=== PATIENT | female | born 1980 | race Hispanic/Latino ===

== ENCOUNTER 2018-08-24 08:09 | Inpatient (IN) | payer SELFPAY ==
--- NOTE | 2018-08-24 08:44 | RAD ---
EXAM: Portable chest PROVIDED CLINICAL HISTORY: Fever COMPARISON: None FINDINGS: Cardiac and mediastinal silhouette is within normal limits. No focal consolidation, pleural fluid or pneumothorax evident. IMPRESSION: No evidence for an acute cardiopulmonary process.
[2018-08-24] MEDS ORDERED: cefTRIAXone\\ROCEPHIN 2 GM VIAL ONE (08:46)
[2018-08-24 08:53] LABS: BHCG - Serum Negative (NEGATIVE); Pregs Control Background? CLEAR/WHITE (CLR/WHITE); Pregs Control Bar Appear? YES (CONTROL BAR)
[2018-08-24 09:05] LABS: ALT (SGPT) 37 U/L (8-55); AST (SGOT) 25 U/L (5-34); Albumin 4.1 g/dL (3.5-5.0); Alkaline Phosphatase 93 U/L (40-150); Anion Gap 13 mmol/L (10-20); BUN (Urea Nitrogen) 10 mg/dL (7.0-18.7); Bilirubin, Total 1.1 mg/dL (0.2-1.2); Calc. Creatinine Clearance 0 mL/min (70-130); Calcium 8.6 mg/dL (7.8-10.44); Carbon Dioxide 21 mmol/L (22-29); Chloride 102 mmol/L (98-107); Estimated GFR-MDRD 75; Globulin 3.7 g/dL (2.4-3.5); Glucose 177 mg/dL (70-105); Potassium 3.5 mmol/L (3.5-5.1); Protein, Total 7.8 g/dL (6.0-8.3); Sodium 132 mmol/L (136-145)
[2018-08-24] MEDS ORDERED: Acetaminophen 500 MG TAB ONE (09:07)
[2018-08-24 09:21] LABS: Band 24 % (5-11); Lymphocytes 5 % (21-51); MDiff Complete? YES; Mean Corpuscular HGB CONC 33.6 g/dL (32.0-36.0); Mean Corpuscular Hemoglobin 31.8 pg (27.0-31.0); Mean Corpuscular Volume 94.6 fL (78.0-98.0); Mean Platelet Volume 8.2 fL (7.4-10.4); Monocytes 1 % (0-10); Neutrophil 70 % (42-75); Platelet Count 224 thou/uL (130-400); RBC Distribution Width 11.7 % (11.5-14.5); Red Blood Cell (RBC) Count 4.09 mill/uL (4.20-5.40)
[2018-08-24 09:50] LABS: Bilirubin Negative (Negative); Blood, Urine Large (Negative); Clarity CLOUDY (Clear); Glucose, Urine (Dipstick) Negative (Negative); Leukocyte Moderate (Negative); Nitrite Positive (Negative); Protein, Urine (Dipstick) Trace mg/dL (Neg-Trace); Specific Gravity, Urine 1.013 (1.002-1.036)
[2018-08-24 09:53] LABS: Bacteria/HPF 1+ HPF (None Seen); Hyaline Casts/LPF 0-3 HYALINE CAST LPF (0-3 Hyaline); Pathc Cast-AUWi Flag 0.27 (0-2.49); RBC/HPF 21-50 HPF (0-3); Squamous Epithelial 0-3 HPF (0-3)
[2018-08-24] MEDS ORDERED: Ciprofloxacin 500 MG TAB ONE (10:12)
[2018-08-24] MEDS ORDERED: Ondansetron ODT 4 MG TAB ONE (10:12)
--- NOTE | 2018-08-24 10:57 | PDOC.FPRHP ---
- History of Present Illness Chief Complaint: fever, urinary frequency History of Present Illness: 37 yo F with no PMH presents to ED with fever, urinary frequency that started yesterday. Reports body pain, fever, chills, frequency, rapid heart beat that has now improved. Denies dysuria. Reports nausea and decreased PO intake, no vomiting. Pain worse at LLQ and radiates to back. Never had nephrolithiasis. Has has simple cystitis in past that she treats with OTC azo. Last took 15 days ago which resolved symptoms. ED Course: 1L, tylenol, zofran, rocpehin, cipro - Allergies/Adverse Reactions Allergies Allergy/AdvReac Type Severity Reaction Status Date / Time No Known Allergies Allergy Verified 04/06/15 16:41 - Home Medications Medication Instructions Recorded Confirmed Type No Known 08/24/18 08/24/18 History - History PMHx: depression - off meds for 4 years PSHx: x2, cholecystectomy FHx: Denies Social: Prior tobacco use. Quit 6 months ago. Smoked 1-2 cigs/day fro >10 yrs. Social alcohol use. No drug use. - Review of Systems General: reports: fever/chills, weight/appetite/sleep changes, fatigue ENT: denies: nasal congestion Respiratory: denies: cough, shortness of breath Cardiovascular: reports: palpitation. denies: chest pain Gastrointestinal: reports: nausea, abdominal pain. denies: vomiting Genitourinary: reports: other (frequency). denies: incontinence, dysuria Skin: denies: rashes, lesions Musculoskeletal: reports: pain. denies: swelling Neurological: denies: numbness, syncope Psychological: denies: anxiety, depression - Vital signs BP: 109/63 HR: 111 RR: 20 Tmax: 102.7 Pox: 98% on RA Wt: 61 kg - Physical Exam HEENT: normocephalic and atraumatic, PERRLA, EOMI, conjunctiva clear, MMM, oropharynx clear Neck: supple Heart: normal S1/S2, no murmurs/rubs/gallops (tachycardia), pulses present, no edema Lungs: CTAB, no respiratory distress, no wheezing Abdomen: soft, bowel sounds present, other (suprapubic tenderness) Musculoskeletal: normal structure, normal tone -Musculoskeletal: mild CVA tenderness on L Neurological: no focal deficit Skin: no rash/lesions Heme/Lymphatic: no LAD Psychiatric: normal mood and affect FMR H&P: Results - Labs Result Diagrams: 08/24/18 08:21 08/24/18 08:21 Lab results: WBC 19.0 thou/uL (4.8-10.8) H 08/24/18 08:21 Hgb 13.0 g/dL (12.0-16.0) 08/24/18 08:21 Hct 38.7 % (36.0-47.0) 08/24/18 08:21 MCV 94.6 fL (78.0-98.0) 08/24/18 08:21 Plt Count 224 thou/uL (130-400) 08/24/18 08:21 Band Neuts % (Manual) 24 % (5-11) H 08/24/18 08:21 Sodium 132 mmol/L (136-145) L 08/24/18 08:21 Potassium 3.5 mmol/L (3.5-5.1) 08/24/18 08:21 Chloride 102 mmol/L (98-107) 08/24/18 08:21 Carbon Dioxide 21 mmol/L (22-29) L 08/24/18 08:21 BUN 10 mg/dL (7.0-18.7) 08/24/18 08:21 Creatinine 0.84 mg/dL (0.6-1.1) 08/24/18 08:21 Glucose 177 mg/dL (70-105) H 08/24/18 08:21 Lactic Acid 1.6 mmol/L (0.5-2.2) 08/24/18 08:21 Calcium 8.6 mg/dL (7.8-10.44) 08/24/18 08:21 Total Bilirubin 1.1 mg/dL (0.2-1.2) 08/24/18 08:21 AST 25 U/L (5-34) 08/24/18 08:21 ALT 37 U/L (8-55) 08/24/18 08:21 Alkaline Phosphatase 93 U/L (40-150) 08/24/18 08:21 Serum Total Protein 7.8 g/dL (6.0-8.3) 08/24/18 08:21 Albumin 4.1 g/dL (3.5-5.0) 08/24/18 08:21 Urine Ketones Negative mg/dL (Negative) 08/24/18 09:35 Urine Blood Large (Negative) H 08/24/18 09:35 Urine Nitrite Positive (Negative) H 08/24/18 09:35 Ur Leukocyte Esterase Moderate (Negative) H 08/24/18 09:35 Urine RBC 21-50 HPF (0-3) H 08/24/18 09:35 Urine WBC Greater Than 50-TNTC HPF (0-3) H 08/24/18 09:35 Ur Squamous Epith Cells 0-3 HPF (0-3) 08/24/18 09:35 Urine Bacteria 1+ HPF (None Seen) H 08/24/18 09:35 FMR H&P: A/P - Problem List (1) Sepsis Current Visit: Yes Status: Acute Code(s): A41.9 - SEPSIS, UNSPECIFIED ORGANISM (2) Pyelonephritis Current Visit: Yes Status: Acute Code(s): N12 - TUBULO-INTERSTITIAL NEPHRITIS, NOT SPCF ACUTE OR CHRONIC - Plan Sepsis 2/2 cystitis vs pyelonephritis - tachycardia, leukocytosis WCB 19, fever 102 on admission - UA with positive nitrites, mod leuk esterase, TNTC WBC - Flu and CXR negative - In ED received rocephin and cipro. Continue rocephin (08/24) - s/p 1L + in ED. Patient tolerating some water. Continue NS@150 - tylenol and zofran prn - questionable true CVA tenderness. Will not pursue imaging at this time. Will reconsider if clinical picture worsens. - pending blood and urine cultures Diet: Regular Ppx: SCDs PCP: none Dispo: admit to medical inpatient Patient seen with Dr. Underwood. FMR H&P: Upper Level - Pertinent history 37 yo female here for back pain. Pt has 1 day history of left back pain, assoc fever. Decreased po intake 2/2 nausea. No vomiting, chest pain, SOB. No pain with urination. No PCP as she denies any medical history or medications. - Pertinent findings 114/62 HR: 103 TEMP: 100.7 RR: 14 98% on RA UA: Leukocytes, nitrites, WBC TNTC, Bacteria 1+ WBC: 19.0 Band: 24% Lactate: 1.6 CXR: no evidence for acute cardiopulmonary process GEN: mildly acutely ill appearing CARD: RRR, no mgr PULM: CTAB ABD: TTP LLQ, radiating to back; mildly positive heel pound peritoneal sign - Plan Date/Time: 08/24/18 1052 I, Jose Johnson DO, have evaluated this patient and agree with findings/plan as outlined by dental intern resident. Pertinent changes/additions are listed here. #UTI concerning for pyelonephritis -pt received rocephin and ciprofloxican in ER -continue with rocephin -await sensitivities #dehydration -received bolus in ER -continue with fluids at 150/hr while poor po intake Addendum - Attending - Attending Attestation Date/Time: 08/24/18 1707 I personally evaluated the patient and discussed the management with Dr. Combs /Elizabeth. H&P repeated by me. I agree with the History, Examination, Assessment and Plan documented above with any addition or exceptions noted below. Sepsis secondary to acute pyelonephritis- IVF, IV rocephin and await urine cx and blood cx. No imaging indication at this time but will consider if no clinical improvement over the next 2-3 days (to r/o abscess).
[2018-08-24 12:43] VITALS: BMI 24.5
[2018-08-24] MEDS: Acetaminophen 325 MG TAB PO PRN ×2 (12:56→18:10)
[2018-08-24] MEDS: Sodium Chloride 0.9% 1,000 ML IV SCH ×2 (12:57→18:10)
[2018-08-24] MEDS ORDERED: Ondansetron PF 4 MG/2 ML Vial IVP PRN (16:15)
[2018-08-24] MEDS ORDERED: Ondansetron ODT 4 MG TAB PO PRN (16:15)
[2018-08-24] MEDS: traMADol HCl 50 MG TAB PO PRN (16:29)
[2018-08-25] MEDS: Acetaminophen 325 MG TAB PO PRN ×4 (00:53→17:22)
[2018-08-25] MEDS: Sodium Chloride 0.9% 1,000 ML IV SCH ×4 (00:55→21:45)
[2018-08-25 06:30] LABS: #Lymphocytes 1.3 thou/uL (1.20-3.40); #Monocytes 1.3 thou/uL (0.11-0.59); #Neutrophils 11.8 thou/uL (1.40-6.50); %Basophils 0.2 % (0.0-1.0); %Eosinophils 0.1 % (0.0-10.0); %Lymphocytes 9.2 % (21.0-51.0); %Monocytes 8.8 % (0.0-10.0); %Neutrophils 81.7 % (42.0-75.0); Hemoglobin 11.4 g/dL (12.0-16.0); Mean Corpuscular HGB CONC 32.9 g/dL (32.0-36.0); Mean Corpuscular Hemoglobin 31.7 pg (27.0-31.0); Mean Corpuscular Volume 96.4 fL (78.0-98.0); Mean Platelet Volume 8.2 fL (7.4-10.4); Platelet Count 168 thou/uL (130-400); RBC Distribution Width 11.9 % (11.5-14.5); White Blood Cell (WBC) Count 14.5 thou/uL (4.8-10.8)
[2018-08-25 06:45] LABS: Anion Gap 10 mmol/L (10-20); BUN (Urea Nitrogen) 7 mg/dL (7.0-18.7); Calc. Creatinine Clearance 119 mL/min (70-130); Carbon Dioxide 21 mmol/L (22-29); Chloride 109 mmol/L (98-107); Estimated GFR-MDRD Greater than 90; Glucose 87 mg/dL (70-105); Potassium 3.9 mmol/L (3.5-5.1); Sodium 136 mmol/L (136-145)
--- NOTE | 2018-08-25 07:11 | PDOC.FM ---
- Subjective Subjective: Ms. Huerta was feeling better this morning. Afebrile since yesterday afternoon. Has intermittent low back pain though she has not asked for any pain medications. Reports nausea. Has not eaten food, but says she is drinking more water than she does typically. - Objective MAR Reviewed: Yes Vital Signs & Weight: Vital Signs (12 hours) Temp Pulse Resp BP Pulse Ox 08/25/18 04:00 98.2 F 77 18 93/62 98 08/25/18 00:00 99.5 F 86 18 109/73 99 08/24/18 20:00 99 F 107 H 18 100/68 98 Weight Weight 61 kg I&O: 08/24/18 08/25/18 08/26/18 06:59 06:59 06:59 Intake Total 4150 Balance 4150 Result Diagrams: 08/25/18 06:03 08/25/18 06:03 Phys Exam - Physical Examination Respiratory: no wheezing, clear to auscultation bilateral Cardiovascular: RRR, no significant murmur Gastrointestinal: soft, positive bowel sounds suprapubic tenderness Musculoskeletal: no edema Neurological: non-focal Psychiatric: normal affect Skin: normal turgor Dx/Plan (1) Sepsis Code(s): A41.9 - SEPSIS, UNSPECIFIED ORGANISM Status: Acute (2) Pyelonephritis Code(s): N12 - TUBULO-INTERSTITIAL NEPHRITIS, NOT SPCF ACUTE OR CHRONIC Status: Acute - Plan Plan: Sepsis 2/2 cystitis vs pyelonephritis - tachycardia, leukocytosis WCB 19, fever 102 on admission - UA with positive nitrites, mod leuk esterase, TNTC WBC - Flu and CXR negative - In ED received rocephin and cipro. Continue rocephin (08/24) - Continue NS@150 - tylenol, ibuprofen, tramadol and zofran prn - questionable true CVA tenderness. Will not pursue imaging at this time. Will reconsider if clinical picture worsens. - pending blood and urine cultures Diet: Regular Ppx: SCDs PCP: none Dispo: pending culture results, could possibly discharge tomorrow Addendum - Attending - Attending Attestation Date/Time: 08/25/18 1223 I personally evaluated the patient and discussed the management with Dr. Combs. I agree with the History, Examination, Assessment and Plan documented above with any addition or exceptions noted below. Pyelonephritis- pending urine cx. Continue rocephin and IVF. Blood cx neg thus far. Febrile again this morning. Bifrontal reza- no visual disturbance or neck stiffness- most consistent with tension headache. Try tylenol/motrin and tramadol. Frequent reevaluation.
[2018-08-25] MEDS: traMADol HCl 50 MG TAB PO PRN ×2 (09:03→17:20)
[2018-08-25] MEDS: cefTRIAXone\\ROCEPHIN 1 GM in Sodium Chloride 0.9% 100 ML IVPB SCH (09:05)
[2018-08-25] MEDS: Ibuprofen 800 MG TAB PO PRN ×2 (09:55→21:44)
[2018-08-26] MEDS: Sodium Chloride 0.9% 1,000 ML IV SCH (05:04)
[2018-08-26] MEDS: Ibuprofen 800 MG TAB PO PRN (05:05)
--- NOTE | 2018-08-26 06:33 | PDOC.FM ---
- Subjective Subjective: Ms. Huerta reports recurrent headache and neck pain this am. It resolved yesterday afternoon but came back this morning. Denes fever, chills. Drinking plenty of water. Has not eaten much due to decreased appetite. Denies nausea. - Objective MAR Reviewed: Yes Vital Signs & Weight: Vital Signs (12 hours) Temp Pulse Resp BP BP Pulse Ox 08/26/18 05:09 97.9 F 87 20 117/82 98 08/26/18 00:00 98.1 F 70 18 90/61 98 08/25/18 20:00 97.9 F 73 16 104/69 98 Weight Weight 61 kg I&O: 08/24/18 08/25/18 08/26/18 06:59 06:59 06:59 Intake Total 4150 2980 Balance 4150 2980 Result Diagrams: 08/25/18 06:03 08/25/18 06:03 Phys Exam - Physical Examination bilateral paraspinal muscles tight Respiratory: no wheezing, clear to auscultation bilateral Cardiovascular: RRR, no significant murmur Gastrointestinal: soft, positive bowel sounds suprapubic tendernes Musculoskeletal: no edema no nuchal rigidity Neurological: non-focal Psychiatric: normal affect Skin: normal turgor Dx/Plan (1) Sepsis Code(s): A41.9 - SEPSIS, UNSPECIFIED ORGANISM Status: Acute (2) Pyelonephritis Code(s): N12 - TUBULO-INTERSTITIAL NEPHRITIS, NOT SPCF ACUTE OR CHRONIC Status: Acute - Plan Plan: Sepsis 2/2 cystitis vs pyelonephritis - tachycardia, leukocytosis WCB 19, fever 102 on admission - UA with positive nitrites, mod leuk esterase, TNTC WBC - Flu and CXR negative - In ED received rocephin and cipro. Continue rocephin (08/24) - Last fever 0800 yesterday. Will d/c IVF today - tylenol, ibuprofen, tramadol and zofran prn - Bcx NGTD, Ucx with mixed elizabeth til now Headache - tension type - tylenol, ibuprofen, muscle relaxer prn Diet: Regular Ppx: SCDs PCP: none Dispo: likely discharge pending cultures Addendum - Attending - Attending Attestation Date/Time: 08/26/18 [id number] I personally evaluated the patient and discussed the management with Dr. Combs. I agree with the History, Examination, Assessment and Plan documented above with any addition or exceptions noted below. Acute L pyelonephritis- clinically much improved. Afebrile since 08/25 at 0800. Back/flank pain improved. WBC improved. Ucx growing out mixed elizabeth at <10K which is not consistent with her classic presentation. Will d/c with 14 day course (11 additional days) of omnicef since improved on Rocephin. Good rx card to be given. Muscle tension headache- ibuprofen and flexeril. Probable d/c home this evening.
[2018-08-26] MEDS ORDERED: Cyclobenzaprine 10 MG TAB PO PRN (08:25)
[2018-08-26] MEDS ORDERED: Cyclobenzaprine 10 MG TAB PO SCH (08:30)
[2018-08-26] MEDS: cefTRIAXone\\ROCEPHIN 1 GM in Sodium Chloride 0.9% 100 ML IVPB SCH (09:25)
[2018-08-26] MEDS: Acetaminophen 325 MG TAB PO PRN (11:46)
[2018-08-26 16:23] VITALS: BP 102/66; TEMP 99.1
== END 2018-08-26 18:23 | disposition home or self-care (01) | DRG 872 ==
LOC: ERS 08:09 → T4-B 10:21
PROVIDERS: ADMIT Family Medicine; ATTEND Family Medicine
DX: A41.9 Sepsis, unspecified organism (principal); N10 Acute pyelonephritis; G44.209 Tension-type headache, unspecified, not intractable; F41.9 Anxiety disorder, unspecified; F32.9 Major depressive disorder, single episode, unspecified; E86.0 Dehydration; Z87.891 Personal history of nicotine dependence; Z98.890 Other specified postprocedural states
CPT/HCPCS: 36415; 71045; 80048; 80053; 81003; 81015; 83605; 84703; 85025; 87040; 87086; 87804; 93005; 94760; 96361; 96365; J0696; J3490; Q0162

== ENCOUNTER 2023-04-23 08:53 | Emergency (ER) | payer SELFPAY ==
[2023-04-23 09:21] LABS: #Basophils 0.1 thou/uL (0.0-0.2); #Eosinphils 0.2 thou/uL (0.0-0.7); #Monocytes 0.7 thou/uL (0.11-0.59); #Neutrophils 9.2 thou/uL (1.40-6.50); %Basophils 0.4 % (0.0-1.0); %Lymphocytes 15.8 % (21.0-51.0); %Neutrophils 75.6 % (42.0-75.0); Hematocrit 40.3 % (36.0-47.0); Hemoglobin 13.7 g/dL (12.0-16.0); Mean Corpuscular Hemoglobin 30.9 pg (27.0-31.0); Mean Corpuscular Volume 90.8 fl (78.0-98.0); Mean Platelet Volume 9.8 fL (7.4-10.4); Platelet Count 315 10x3/uL (130-400); RBC Distribution Width 12.7 % (11.5-14.5); Red Blood Cell (RBC) Count 4.44 mill/uL (4.20-5.40); White Blood Cell (WBC) Count 12.2 10x3/uL (4.8-10.8)
[2023-04-23] MEDS ORDERED: Ketorolac Tromethamine 30 MG/ML VIAL ONE (09:28)
[2023-04-23 09:41] LABS: ALT (SGPT) 25 U/L (8-55); AST (SGOT) 14 U/L (5-34); Albumin 3.9 g/dL (3.5-5.0); Alkaline Phosphatase 109 U/L (40-110); Anion Gap 13 mmol/L (10-20); BUN (Urea Nitrogen) 11 mg/dL (7.0-18.7); Bilirubin, Total 0.6 mg/dL (0.2-1.2); Calc. Creatinine Clearance 0 mL/min (70-130); Calcium 9.1 mg/dL (7.8-10.44); Carbon Dioxide 21 mmol/L (22-29); Chloride 106 mmol/L (98-107); Estimated GFR 95; Globulin 3.9 g/dL (2.4-3.5); Glucose 105 mg/dL (70-105); Lipase 19 U/L (8-78); Potassium 3.9 mmol/L (3.5-5.1); Protein, Total 7.8 g/dL (6.0-8.3); Sodium 136 mmol/L (136-145); Troponin I Less than 0.010 ng/mL (< 0.028)
[2023-04-23] MEDS ORDERED: Ondansetron PF 4 MG/2 ML Vial ONE (09:55)
[2023-04-23] MEDS ORDERED: HYDROmorphone 0.5 MG/0.5 ML SYRINGE ONE (09:55)
== END 2023-04-23 12:44 | disposition home or self-care (01) ==
LOC: ERS 08:53
DX: R07.9 Chest pain, unspecified (principal); R10.9 Unspecified abdominal pain
CPT/HCPCS: 36415; 71045; 74176; 80053; 83690; 83880; 84484; 85025; 85379; 93005; 96374; 96375; J1170; J1885; J2405

== ENCOUNTER 2023-04-24 15:56 | Outpatient (CLI) | payer OTHER | END 2023-04-24 15:57 | disposition home or self-care (01) | LOC: ULT 15:56 | PROVIDERS: ATTEND Urology | DX: N39.0 Urinary tract infection, site not specified (principal) | CPT/HCPCS: 76770 ==